=== PATIENT | female | born 1955 | race Caucasian/White ===

== ENCOUNTER 2019-09-03 05:56 | Day surgery (SDC) | payer OTHER, SELFPAY ==
[2019-09-03] VITALS (8 sets, daily range): BP systolic 88–162; BP diastolic 64–80; PULSE 58–67; RESP 14–16; TEMP 36.1–37.2; O2SAT 91–97; BMI 32.2
--- NOTE | 2019-09-03 07:27 | EKG12_ITS ---
Test Reason : PRE-OP Blood Pressure : / mmHG Vent. Rate : 062 BPM Atrial Rate : 062 BPM P-R Int : 164 ms QRS Dur : 078 ms QT Int : 432 ms P-R-T Axes : 067 002 034 degrees QTc Int : 438 ms Normal sinus rhythm Normal ECG No previous ECGs available Confirmed by BETITO STROUD ([id number]), research editor KATEY GARNER ([id number]) on 09/03/2019 1:16:28 PM Referred By: Mino Day Confirmed By:BETITO STROUD
--- NOTE | 2019-09-03 07:57 | DCINST_ITS ---
Discharge Diet: Light diet - advance as tolerated Discharge Activity: Return to Normal Activity Call your doctor if you observe: Fever of 101 or Higher Suture Line Care: Avoid Pulling/Pushing, Avoid Pinching/Bending Instructions: Ureteral Stents Allergies/Adverse Reactions: Allergies caffeine Allergy (Verified 09/03/19 07:47) chest ache and stomach ache Medications to take at Discharge Amour Thyroid 90 mg PO DAILY 09/02/19 Hydrocodone Bitart/Apap 5-325 [[place] 5MG-325MG] 1 tab PO Q6H PRN PRN 09/02/19 Primary Care Physician: Harmony Acosta MD [Primary Care Provider] - Test Results: Test results from this visit will be discussed in further detail at your follow- up appointment, if applicable. Please Follow Up With: Mino Day MD When: please call to make an appointment.
[2019-09-03] MEDS: Lactated Ringers 1,000 ML 100 ML IV (08:00)
[2019-09-03] MEDS: Lubricating Jelly 60 GM Tube 30 GM TOPICAL (08:10)
[2019-09-03] MEDS: Cefazolin 2 GM in 0.9% Normal Saline 100 ML IV (08:12)
[2019-09-03] MEDS: Lidocaine Jelly 2% 20 ML Syringe (URO-JET) 20 APPLIC (08:17)
--- NOTE | 2019-09-03 08:20 | OP.PCM_ITS ---
Report of Operation Date of Procedure: 09/03/19 Pre-Operative Diagnosis: Obstructing distal right ureteral calculi 8 mm in size Post-Operative Diagnosis: Same Surgery/Procedure Performed:: Cystoscopy, right retrograde pyelogram, interpretation fluoroscopic images, right stent placement Description of Surgical Findings:: 63-year-old female taken back to the operating room after smooth induction of MAC local anesthesia she was placed in dorsolithotomy position, the urethra and vaginal area were prepped and draped in usual sterile fashion, we used lidocaine jelly into the urethra and bladder, I then went into the bladder with a 21 [place] rigid cystourethroscope, inside the bladder she had a normal trigone normal bladder no tumors or stones seen within the bladder. I then cannulated the right ureteral orifice with a Glidewire and a Pollack catheter. We performed a retrograde pyelogram gram and we could see the stone in the distal right ureter. I then used a 0.038 Glidewire to advance past the stone without any difficulties. And then over the wire I advanced a stent, 6 x 26 cm stent. Once the stent was in good position we pulled the wire the stent: Kidney bladder good position drained the bladder infections anesthetic is reversed. She is going to undergo cardiac clearance and then will bring her back for ureteroscopy and laser of the stone. Type of Anesthesia:: Local MAC Drains: stent right side - Admit VTE Documentation VTE Present on Admission: No VTE Mechan Device Prophylaxis: SCD's
--- NOTE | 2019-09-03 08:46 | EKG12_ITS ---
Test Reason : Blood Pressure : / mmHG Vent. Rate : 059 BPM Atrial Rate : 059 BPM P-R Int : 164 ms QRS Dur : 084 ms QT Int : 446 ms P-R-T Axes : 059 006 027 degrees QTc Int : 441 ms Sinus bradycardia Otherwise normal ECG When compared with ECG of 03-SEP-2019 07:43, MANUAL COMPARISON REQUIRED, DATA IS UNCONFIRMED Confirmed by BETITO STROUD ([id number]), newspaper editor managing VIKKI GREWAL ([id number]) on 09/09/2019 1:33:35 PM Referred By: Mino Day Confirmed By:BETITO STROUD
--- NOTE | 2019-09-07 03:28 | HP_ITS ---
HPI HPI History of Present Illness Surgical H&P: Yes Details: Ms. Hurst is a very pleasant 63-year-old nondiabetic, lifelong non- smoking female referred to us by urology for preop evaluation and chest pain. She has no significant hypertension and unknown cholesterol. Patient apparently requires ureteroscopy laser and stent for kidney stone and complained of chest pressure to her urologist Dr. Day. An EKG was performed on 09/03/2019 which showed normal sinus rhythm, normal axis, normal intervals, no evidence of previous myocardial infarction. She underwent a surgical procedure at [facility] on 09/03/2019 including a cystoscopy, right retrograde pyelogram, and right stent placement. On further history, the patient developed 2 out of 10 midsternal chest pressure and felt her heart beating hard during her uteroscopic procedure. She had no associated nausea, vomiting or shortness of breath. Her pain did not appear to radiate. In addition she has another type of chest pain induced by caffeine use which she describes as different than the midsternal pain she felt during her procedure. She denies any exertional symptoms prior to or subsequent to her urological procedure. She is awaiting cardiac re-stratification to undergo lithotripsy. She has no family history of premature coronary disease. She herself has never had a cardiac catheterization or a diagnosis of heart disease. In our office today her blood pressure is 120/80, pulse 76 and regular. Physical exam demonstrates clear lungs bilaterally, regular rate and rhythm, normal S1/S2, no S3 or S4. No murmurs detected. No edema noted. EKG is as above. Lipids are pending. Intake Vital Signs 09/07/19 Height 5 ft 3 in 09/07/19 Weight: 184 lb 09/07/19 BMI 32.5 09/07/19 BP 120/80 09/07/19 Blood Pressure Location Lt brachial 09/07/19 Position Sitting 09/07/19 Respiration 20 H 09/07/19 Pulse 76 09/07/19 Pulse Source Auscultation Intake Visit Reasons: CLEAR. (EDIS) CHEST PRESSURE Custodian Athletic Equipment Required: No Is patient in pain?: No Allergies caffeine Allergy (Verified 09/03/19 07:47) chest ache and stomach ache Medications Amour Thyroid 90 mg PO DAILY 09/02/19 [History Confirmed 09/06/19] Hydrocodone Bitart/Apap 5-325 [[place] 5MG-325MG] 1 tab PO Q6H PRN PRN 09/02/19 [History Confirmed 09/06/19] Ciprofloxacin [Cipro] 500 mg PO BID #10 tab 09/03/19 [Rx Confirmed 09/06/19] Hydrocodone/Acetaminophen [[place] 5-325 Tablet] 1 ea PO Q4H PRN PRN 5 Days #14 tab 09/03/19 [Rx Confirmed 09/06/19] PFSH Medical History Pre-operative cardiovascular examination (Acute) Right ureteral stone (Acute) Hypothyroidism (Chronic) Surgical History H/O bladder repair surgery (Chronic 2014) Social History (Updated 09/07/19 @ 15:30 by Davonte Grande MD) Smoking Status: Never smoker ROS Const Const: Positive for other (Referred by Dr. Day: had chest pressure during ureteroscopy.); negative for fatigue, weakness, body ache, fever(s), headache(s), chills, frequent falls, night sweats, daytime sleepiness, difficulty sleeping, excessive sweating, weight gain, weight loss, increased appetite, poor appetite or anorexia Eyes Eyes: Negative for blind spots, loss of peripheral vision, transient loss of vision, blurry vision, change in vision, double vision, floaters, tunnel vision or other ENT ENT: Negative for headache(s), dizziness, hearing loss, tinnitus, Nosebleed/epistaxis, balance problems, post nasal drip, lip swelling, tongue swelling, bleeding gums, hoarseness, neck pain, dry mouth or other Cardio Chest Pain: Yes (States had chest pain through to back for years) Frequency: other (Notices when she has caffeine) Character: other (Like a cramp) Onset: other (After caffeine (Coffee, tea, or lg amt chocolate). Also if tired.) Location: mid sternal, other (Radiating through to back.) Duration: minutes Exacerbation: other (caffeine) Relieving: other (sitting up from lying, belching, or taking sip of water) Recurrence: other (Thinks day of ureteroscopy it was from her pain pills.) Palpitations: No Edema: None Muscle aches with walking: None Resp Respiratory: Negative for SOB with activity, SOB at rest, SOB orthopnea\SOB lying down, Cough, Coughing up blood/hemoptysis, chest congestion, pain on inspiration, snoring, stridor, wheezing, crackles, paroxysmal nocturnal dyspnea or other GI GI: Negative nausea, vomiting, heartburn, constipation, belching, bloating, cramping, vomiting blood/hematemesis, bright, red blood in stools, black,tarry stools, loose stools, Difficulty Swallowing or other : Negative for hematuria, frequent nighttime urination/ nocturia, erectile dysfunction or abnormal vaginal bleeding Musc Musc: Negative for muscle aches/ myalgia, muscle weakness, joint pain or balance problems Skin Skin: Negative redness, non-healing lesions, rash, unusual bruising, skin ulcer, wounds, jaundice or other Neuro Neuro: Negative for dizziness, lightheadedness, near syncope, syncope, orthostatic symptoms, frequent falls, headache(s), weakness, confusion, memory loss, restless legs, blurry vision, double vision, vertigo, seizures, lack of coordination or other Davis Hematologic/Lymphatic: Negative for easy bleeding, easy bruising, enlarged lymph nodes or other Endo Endo: Positive for other (On [place] Thyroid for about 30 years.); negative for fatigue, cold intolerance, heat intolerance, excessive sweating, flushing, increased thirst/drinking, increased hunger, hair loss or hair growth Psych Psych: Negative for anxiety, depression, thoughts of harming anyone, thoughts of harming yourself, visual hallucinations, panic attacks or audible hallucinations Allergy Allergy/Immunology: Negative for throat swelling, Negative for tongue swelling, Negative for hives, Negative for rash, Negative for lip swelling Cardiology Exam Const Appearance: cooperative, healthy appearing and no acute distress Nutritional Appearance: well nourished Orientation: alert, oriented x3 and oriented to person Head Head: normal to inspection, normocephalic and atraumatic Nose: external nose normal Face and Sinus: face symmetric Mouth: oral mucosae normal Eyes General: appearance normal, both eyes and all related structures Eyelids: eyelids normal Conjunctivae: conjunctivae normal Pupils: PERRL and normal by confrontation EOM: EOM intact bilaterally Neck Neck: normal visual inspection and full ROM Carotids: normal carotid upstroke Chest Chest inspection: normal inspection of the chest Auscultation: Bilateral: Clear to Auscultation Cardio Palpation: normal PMI Rate: regular rate Rhythm: regular rhythm Heart sounds: S1 normal and S2 normal GI GI: normal to inspection, no hepatosplenomegaly and bowel sounds present Neuro General: alert, awake, oriented x3, CN's II-XI intact bilaterally and moves all extremities Skin Skin: no rashes or lesions noted Extremities Pulses: Normal: Right Femoral Pulse, Left Femoral Pulse, Right Dorsalis Pedis Pulse, Left Dorsalis Pedis Pulse, Right Posterior Tibial Pulse, Left Posterior Tibial Pulse, Right Radial Pulse, Left Radial Pulse Lower Extremity Edema: None: Bilateral Psych Psychological: normal affect Assessment & Plan 1. Pre-operative cardiovascular examination Z01.810 Chest pressure during initial cystocopy 09/03/[address] Day Plan 1. Preoperative stratification: The patient had new onset substernal chest discomfort while she was undergoing a uroscopic procedure. She had no dynamic EKG changes that I can decipher. Her EKG appears to be normal. Her pain was dissimilar from her previous atypical caffeine induced chest pain. Given the patient's need for a repeat urological procedure and her new onset chest discomfort, I recommend that she undergo a 2D echo with Doppler to document her LV function as well as a treadmill echocardiogram to determine if she has any evidence of ischemia. If either 1 of these are grossly abnormal, the patient may require diagnostic coronary angiogram prior to her follow-up urological procedure. I would not recommend baby aspirin at this time as she requires additional urological procedure in the near future. If her stress test is negative, she will be deemed at low risk for noncardiac surgery, and may proceed with her lithotripsy. In addition we will obtain a fasting lipid profile to complete her cardiac risk profile. 2. Follow-up in 6 months. This note was generated using a voice recognition system and there may be incorrect words, spelling or punctuation that were not noted when reviewing the office note prior to saving. Orders Orders: Lipid Profile Today Liver Profile Today Echo Complete Today Stress Test Echo W/Contrast Today Plan Detail Other Orders Orders: Lipid Profile Today E03.9, R07.9 Liver Profile Today E03.9, R07.9 Echo Complete Today R07.9 Stress Test Echo W/Contrast Today E03.9, R07.9 Follow Up +6M (Grande) Coding Level of Care Code Off vis,new,level 4 Diagnoses Pre-operative cardiovascular examination Z01.810 Coding Level of Care Code Off vis,new,level 4 Diagnoses Pre-operative cardiovascular examination Z01.810 Supplemental Info Supplemental Information Diagnostics Electrocardiogram 09/03/19 09/07/19 1530 <Electronically signed by Davonte Grande MD> Date _ Davonte Grande MD
== END 2019-09-03 14:19 | disposition home or self-care (01) ==
LOC: SDC 06:00 → AC 06:01
PROVIDERS: Anesthesiology; PCP Internal Medicine; Referring Provider Urology; Visit Provider Urology
PROC: (CPT 52005; principal; 2019-09-03 07:20)
DX: N20.1 Calculus of ureter (principal); E03.9 Hypothyroidism, unspecified; Z79.899 Other long term (current) drug therapy
CPT/HCPCS: 00910; 52005; 52332; 36415; 76000; 84484; 93005; J7120; A4216; C2617; J2405

== ENCOUNTER → 2019-09-08 08:07 | Outpatient (CLI) | payer SELFPAY, OTHER ==
[2019-09-07 14:24] VITALS: BMI 32.5
--- NOTE | 2019-09-08 08:08 | STEWCON_ITS ---
Reason For Study: CHEST PAIN Stress Results Protocol: Tha Protocol WITH DEFINITY Maximum Predicted HR: 158 bpm Target HR: 134 bpm % Maximum Predicted HR: 94 % DurationHeart Rate Stage (mm:ss) (bpm) BP Comment BASELINE 66 128/824 CC DEFINITY FOR TEST STAGE 1 3:00 100 158/82 STAGE 2 3:00 118 172/80 STAGE 3 3:00 148 182/70 RECOVERY 94 130/80NO CHEST PAIN Stress Duration: 9:00 mm:ss Maximum Stress HR: 148 bpm Baseline Echocardiogram Findings The estimated ejection fraction is 65 %. Stress Echo Wall motion Data Resting WM Intermediate WM Stress WM EKG Data The baseline ECG displays normal sinus rhythm. The patient exercised according to the regular Tha protocol for a total duration of 9:00. The maximum heart rate attained was 150 beats per minute. This was 94% of maximum predicted heart rate. The patient exercised into stage 4 of the Tha protocol. During stress, there were no ST or T wave changes noted to suggest ischemia. No arrhythmias noted. No clinical angina was noted. Interpretation Summary The estimated ejection fraction is 65 %. Normal, adequate, treadmill echocardiogram. Negative for ischemia by EKG and echocardiographic criteria. No anginal symptoms noted. No arrhythmias noted. Appropriate blood pressure response to exercise. Average exercise capacity for age. Test terminated due to dyspnea and target heart rate achieved. Final LVEF is 75%. Decreased sensitivity due to poor echo windows requiring Definity agent. No complications. The study was technically difficult. Contrast injection was performed. Ordering Physician: Davonte Grande Referring Physician: Davonte Grande Performed By: Sena Toth, KEITH, RVT
--- NOTE | 2019-09-08 08:08 | ECHOD_ITS ---
Reason For Study: CHEST PAIN Procedure This was a 2D Doppler, Color Flow transthoracic echocardiogram. Exam performed in department. Left Ventricle Normal size and thickness. The estimated ejection fraction is 65 %. Stage 1 diastolic dysfunction. No regional wall motion abnormalities noted. Right Ventricle Normal size and thickness. Atria Normal left atrium. Normal right atrium. Normal atrial septum. Mitral Valve The mitral valve is structurally normal. No prolapse or stenosis seen. Trivial mitral valve insufficiency. Tricuspid Valve Normal tricuspid valve. Trivial tricuspid valve insufficiency. Right ventricular systolic pressure estimated to be 28 mmHg. Aortic Valve Trisinus/trileaflet aortic valve. Aortic sclerosis, no stenosis. There is no aortic stenosis. Pulmonic Valve Normal pulmonic valve. Great Vessels Normal aortic root. Normal arch. Normal inferior vena cava. Inferior vena cava collapse with sniff. Pericardium/Pleural No pericardial effusion. MMode/2D Measurements & Calculations LVIDd: 4.6 cm IVSd: 0.82 cm Ao root diam: 2.5 cm LVIDs: 2.7 cm LVPWd: 0.92 cm RVDd: 3.5 cm FS: 41.0 % LAV(MOD-bp): 49.6 ml LA A4 area: 16.7 cm2 LA dimension(2D): 3.8 cm LAV(MOD-bp) Indexed: 27.1 ml/m2 LAV(MOD-sp2): 46.7 ml LAV(MOD-sp4): 46.4 ml RA A4 area: 10.1 cm2 Time Measurements MV dec time: 0.25 sec Doppler Measurements & Calculations MV E max eran: 94.6 cm/sec Lat Peak E' Eran: 9.9 cm/sec Med Peak E' Eran: 8.3 cm/sec MV A max eran: 114.2 cm/sec E/E' lat: 9.6 E/E' med: 11.4 MV E/A: 0.83 Ao V2 max: 176.3 cm/sec LV V1 max: 94.7 cm/sec PA V2 max: 96.1 cm/sec Ao max P.4 mmHg LV V1 max P.6 mmHg Ao V2 mean: 132.1 cm/sec LV V1 mean P.2 mmHg Ao mean P.4 mmHg LV V1 mean: 71.2 cm/sec Ao V2 VTI: 38.4 cm LV V1 VTI: 24.1 cm TR max eran: 238.4 cm/sec TR max P.7 mmHg Interpretation Summary The estimated ejection fraction is 65 %. Stage 1 diastolic dysfunction. Trivial mitral valve insufficiency. Trivial tricuspid valve insufficiency. Right ventricular systolic pressure estimated to be 28 mmHg. There is no comparison study available. Ordering Physician: Davonte Grande Referring Physician: Harmony Acosta Performed By: Sena Toth RDCS, RVT
== END ==
PROVIDERS: PCP Internal Medicine; Referring Provider Internal Medicine Cardiovascular Disease; Visit Provider Internal Medicine Cardiovascular Disease
DX: Z01.810 Encounter for preprocedural cardiovascular examination (principal); R07.9 Chest pain, unspecified; E03.9 Hypothyroidism, unspecified
CPT/HCPCS: 93017; 93306; 93350; Q9957; A4216; C8928

== ENCOUNTER 2019-09-10 05:57 | Day surgery (SDC) | payer SELFPAY, OTHER ==
--- NOTE | 2019-09-07 03:28 | HP_ITS ---
HPI HPI History of Present Illness Surgical H&P: Yes Details: Ms. Hurst is a very pleasant 63-year-old nondiabetic, lifelong non- smoking female referred to us by urology for preop evaluation and chest pain. She has no significant hypertension and unknown cholesterol. Patient apparently requires ureteroscopy laser and stent for kidney stone and complained of chest pressure to her urologist Dr. Day. An EKG was performed on 09/03/2019 which showed normal sinus rhythm, normal axis, normal intervals, no evidence of previous myocardial infarction. She underwent a surgical procedure at [facility] on 09/03/2019 including a cystoscopy, right retrograde pyelogram, and right stent placement. On further history, the patient developed 2 out of 10 midsternal chest pressure and felt her heart beating hard during her uteroscopic procedure. She had no associated nausea, vomiting or shortness of breath. Her pain did not appear to radiate. In addition she has another type of chest pain induced by caffeine use which she describes as different than the midsternal pain she felt during her procedure. She denies any exertional symptoms prior to or subsequent to her urological procedure. She is awaiting cardiac re-stratification to undergo lithotripsy. She has no family history of premature coronary disease. She herself has never had a cardiac catheterization or a diagnosis of heart disease. In our office today her blood pressure is 120/80, pulse 76 and regular. Physical exam demonstrates clear lungs bilaterally, regular rate and rhythm, normal S1/S2, no S3 or S4. No murmurs detected. No edema noted. EKG is as above. Lipids are pending. Intake Vital Signs 09/07/19 Height 5 ft 3 in 09/07/19 Weight: 184 lb 09/07/19 BMI 32.5 09/07/19 BP 120/80 09/07/19 Blood Pressure Location Lt brachial 09/07/19 Position Sitting 09/07/19 Respiration 20 H 09/07/19 Pulse 76 09/07/19 Pulse Source Auscultation Intake Visit Reasons: CLEAR. (EDIS) CHEST PRESSURE Order Make Up Clerk Required: No Is patient in pain?: No Allergies caffeine Allergy (Verified 09/03/19 07:47) chest ache and stomach ache Medications Amour Thyroid 90 mg PO DAILY 09/02/19 [History Confirmed 09/06/19] Hydrocodone Bitart/Apap 5-325 [[place] 5MG-325MG] 1 tab PO Q6H PRN PRN 09/02/19 [History Confirmed 09/06/19] Ciprofloxacin [Cipro] 500 mg PO BID #10 tab 09/03/19 [Rx Confirmed 09/06/19] Hydrocodone/Acetaminophen [[place] 5-325 Tablet] 1 ea PO Q4H PRN PRN 5 Days #14 tab 09/03/19 [Rx Confirmed 09/06/19] PFSH Medical History Pre-operative cardiovascular examination (Acute) Right ureteral stone (Acute) Hypothyroidism (Chronic) Surgical History H/O bladder repair surgery (Chronic 2014) Social History (Updated 09/07/19 @ 15:30 by Davonte Grande MD) Smoking Status: Never smoker ROS Const Const: Positive for other (Referred by Dr. Day: had chest pressure during ureteroscopy.); negative for fatigue, weakness, body ache, fever(s), headache(s), chills, frequent falls, night sweats, daytime sleepiness, difficulty sleeping, excessive sweating, weight gain, weight loss, increased appetite, poor appetite or anorexia Eyes Eyes: Negative for blind spots, loss of peripheral vision, transient loss of vision, blurry vision, change in vision, double vision, floaters, tunnel vision or other ENT ENT: Negative for headache(s), dizziness, hearing loss, tinnitus, Nosebleed/epistaxis, balance problems, post nasal drip, lip swelling, tongue swelling, bleeding gums, hoarseness, neck pain, dry mouth or other Cardio Chest Pain: Yes (States had chest pain through to back for years) Frequency: other (Notices when she has caffeine) Character: other (Like a cramp) Onset: other (After caffeine (Coffee, tea, or lg amt chocolate). Also if tired.) Location: mid sternal, other (Radiating through to back.) Duration: minutes Exacerbation: other (caffeine) Relieving: other (sitting up from lying, belching, or taking sip of water) Recurrence: other (Thinks day of ureteroscopy it was from her pain pills.) Palpitations: No Edema: None Muscle aches with walking: None Resp Respiratory: Negative for SOB with activity, SOB at rest, SOB orthopnea\SOB lying down, Cough, Coughing up blood/hemoptysis, chest congestion, pain on inspiration, snoring, stridor, wheezing, crackles, paroxysmal nocturnal dyspnea or other GI GI: Negative nausea, vomiting, heartburn, constipation, belching, bloating, cramping, vomiting blood/hematemesis, bright, red blood in stools, black,tarry stools, loose stools, Difficulty Swallowing or other : Negative for hematuria, frequent nighttime urination/ nocturia, erectile dysfunction or abnormal vaginal bleeding Musc Musc: Negative for muscle aches/ myalgia, muscle weakness, joint pain or balance problems Skin Skin: Negative redness, non-healing lesions, rash, unusual bruising, skin ulcer, wounds, jaundice or other Neuro Neuro: Negative for dizziness, lightheadedness, near syncope, syncope, orthostatic symptoms, frequent falls, headache(s), weakness, confusion, memory loss, restless legs, blurry vision, double vision, vertigo, seizures, lack of coordination or other Davis Hematologic/Lymphatic: Negative for easy bleeding, easy bruising, enlarged lymph nodes or other Endo Endo: Positive for other (On [place] Thyroid for about 30 years.); negative for fatigue, cold intolerance, heat intolerance, excessive sweating, flushing, increased thirst/drinking, increased hunger, hair loss or hair growth Psych Psych: Negative for anxiety, depression, thoughts of harming anyone, thoughts of harming yourself, visual hallucinations, panic attacks or audible hallucinations Allergy Allergy/Immunology: Negative for throat swelling, Negative for tongue swelling, Negative for hives, Negative for rash, Negative for lip swelling Cardiology Exam Const Appearance: cooperative, healthy appearing and no acute distress Nutritional Appearance: well nourished Orientation: alert, oriented x3 and oriented to person Head Head: normal to inspection, normocephalic and atraumatic Nose: external nose normal Face and Sinus: face symmetric Mouth: oral mucosae normal Eyes General: appearance normal, both eyes and all related structures Eyelids: eyelids normal Conjunctivae: conjunctivae normal Pupils: PERRL and normal by confrontation EOM: EOM intact bilaterally Neck Neck: normal visual inspection and full ROM Carotids: normal carotid upstroke Chest Chest inspection: normal inspection of the chest Auscultation: Bilateral: Clear to Auscultation Cardio Palpation: normal PMI Rate: regular rate Rhythm: regular rhythm Heart sounds: S1 normal and S2 normal GI GI: normal to inspection, no hepatosplenomegaly and bowel sounds present Neuro General: alert, awake, oriented x3, CN's II-XI intact bilaterally and moves all extremities Skin Skin: no rashes or lesions noted Extremities Pulses: Normal: Right Femoral Pulse, Left Femoral Pulse, Right Dorsalis Pedis Pulse, Left Dorsalis Pedis Pulse, Right Posterior Tibial Pulse, Left Posterior Tibial Pulse, Right Radial Pulse, Left Radial Pulse Lower Extremity Edema: None: Bilateral Psych Psychological: normal affect Assessment & Plan 1. Pre-operative cardiovascular examination Z01.810 Chest pressure during initial cystocopy 09/03/[address] Day Plan 1. Preoperative stratification: The patient had new onset substernal chest discomfort while she was undergoing a uroscopic procedure. She had no dynamic EKG changes that I can decipher. Her EKG appears to be normal. Her pain was dissimilar from her previous atypical caffeine induced chest pain. Given the patient's need for a repeat urological procedure and her new onset chest discomfort, I recommend that she undergo a 2D echo with Doppler to document her LV function as well as a treadmill echocardiogram to determine if she has any evidence of ischemia. If either 1 of these are grossly abnormal, the patient may require diagnostic coronary angiogram prior to her follow-up urological procedure. I would not recommend baby aspirin at this time as she requires additional urological procedure in the near future. If her stress test is negative, she will be deemed at low risk for noncardiac surgery, and may proceed with her lithotripsy. In addition we will obtain a fasting lipid profile to complete her cardiac risk profile. 2. Follow-up in 6 months. This note was generated using a voice recognition system and there may be incorrect words, spelling or punctuation that were not noted when reviewing the office note prior to saving. Orders Orders: Lipid Profile Today Liver Profile Today Echo Complete Today Stress Test Echo W/Contrast Today Plan Detail Other Orders Orders: Lipid Profile Today E03.9, R07.9 Liver Profile Today E03.9, R07.9 Echo Complete Today R07.9 Stress Test Echo W/Contrast Today E03.9, R07.9 Follow Up +6M (Grande) Coding Level of Care Code Off vis,new,level 4 Diagnoses Pre-operative cardiovascular examination Z01.810 Coding Level of Care Code Off vis,new,level 4 Diagnoses Pre-operative cardiovascular examination Z01.810 Supplemental Info Supplemental Information Diagnostics Electrocardiogram 09/03/19 09/07/19 1530 <Electronically signed by Davonte Grande MD> Date _ Davonte Grande MD
[2019-09-07 14:24] VITALS: BMI 32.5
[2019-09-10 06:38] VITALS: BP 140/78; PULSE 69; RESP 18; TEMP 36.2; O2SAT 98; BMI 32.6
[2019-09-10] MEDS: Lactated Ringers 1,000 ML 100 ML IV (06:56)
[2019-09-10] MEDS: Cefazolin 2 GM in 0.9% Normal Saline 100 ML IV (07:21)
--- NOTE | 2019-09-10 07:29 | PCM.HP.STD ---
History of Present Illness Date of Admission: 09/10/19 Chief Complaint: Right ureteral calculi distal ureter The patient is a 63 year old female who presents the hospital for surgery. Past Medical History Past Medical History (Chronic Problems): Chronic Problems (Last Updated 09/07/19 @ 15:14 by Paige Ramon) Hypothyroidism (Chronic) Medical History: Medical History (Last Updated 09/07/19 @ 15:14 by Paige Ramon) Chest pain (Acute) R07.9 Pre-operative cardiovascular examination (Acute) Z01.810 Chest pressure during initial cystocopy 09/03/[address] Day Right ureteral stone (Acute) N20.1 8 mm in size Hypothyroidism (Chronic) E03.9 Allergies caffeine Allergy (Verified 09/10/19 06:31) chest ache and stomach ache Home Medications: Ambulatory Orders Medication Instructions Recorded Amour Thyroid 90 mg PO DAILY 09/02/19 Ciprofloxacin [Cipro] 500 mg PO BID #6 tab 09/10/19 Hydrocodone/Acetaminophen [[place] 1 each PO Q4H PRN PRN 5 Days #10 09/10/19 5-325 Tablet] tablet Surgical History: Surgical History (Last Reviewed 09/07/19 @ 14:24 by Paige Ramon) H/O bladder repair surgery Onset Date: [address] Gil Smoking Status: Never smoker Tobacco Use: Non-smoker VTE Information - Inpt Only VTE Present on Admission: No VTE Mechan Device Prophylaxis: SCD's - Physical Exam Vitals/I&O's: Vital Signs Temp Pulse Resp BP Pulse Ox 97.1 F L 69 18 140/78 H 98 09/10/19 06:38 09/10/19 06:38 09/10/19 06:38 09/10/19 06:38 09/10/19 06:38 Oxygen Delivery Method Room Air Weight: 83.6 kg Body Mass Index (BMI) 32.6 General: Alert, Oriented x3, Cooperative HEENT: Atraumatic, PERRLA, EOMI, Normocephalic Neck: Supple, No JVD, Negative Carotid Bruits Lungs: Clear to auscultation, Normal air movement Cardiovascular: Regular rate, No murmurs Abdomen: Bowel Sounds Present, Soft, Non Tender Extremities: No edema, Capillary Refill Less than 3 Seconds Skin: No rashes, No breakdown Musculoskeletal: No Tenderness to Palpation of Joints or Extremities Neurological: Cranial nerves II-XII grossly intact Psych/Mental Status: Normal Affect, Appropriate Current Medications Cefazolin Sodium 2 gm/ Sodium (Chloride) 110 mls @ 150 mls/hr IV PREOP ONE Stop: 09/10/19 07:43 Lactated Ringer's () 1,000 mls @ 100 mls/hr IV .Q10H MARY Last Admin: 09/10/19 06:56 Dose: 100 mls/hr Documented by: Assessment/Plan All Active Problems (Last Updated 09/07/19 @ 15:14 by Paige Ramon) Chest pain (Acute) Pre-operative cardiovascular examination (Acute) Right ureteral stone (Acute) Plan to proceed with right ureteroscopy laser of stone and stent.
[2019-09-10] MEDS: Lubricating Jelly 60 GM Tube 30 GM TOPICAL (07:47)
--- NOTE | 2019-09-10 07:50 | DCINST_ITS ---
Discharge Diet: Light diet - advance as tolerated Call your doctor if you observe: Fever of 101 or Higher Allergies/Adverse Reactions: Allergies caffeine Allergy (Verified 09/10/19 06:31) chest ache and stomach ache Medications to take at Discharge Amour Thyroid 90 mg PO DAILY 09/02/19 Ciprofloxacin [Cipro] 500 mg PO BID #6 tab 09/10/19 Hydrocodone/Acetaminophen [[place] 5-325 Tablet] 1 each PO Q4H PRN PRN 5 Days #10 tablet 09/10/19 The following prescriptions were given: Ciprofloxacin [Cipro] 500 mg PO BID #6 tab Transmission Status: Pending to [facility] Hydrocodone/Acetaminophen [[place] 5-325 Tablet] 1 each PO Q4H PRN PRN 5 Days #10 tablet PRN Reason: Pain Score 1-10/10 Transmission Status: Sent to [facility] Primary Care Physician: Harmony Acosta MD [Primary Care Provider] - Test Results: Test results from this visit will be discussed in further detail at your follow- up appointment, if applicable. Please Follow Up With: Mino Day MD When: please call to make an appointment.
--- NOTE | 2019-09-10 07:51 | OP.PCM_ITS ---
Report of Operation Date of Procedure: 09/10/19 Pre-Operative Diagnosis: Right ureteral calculi causing obstruction Post-Operative Diagnosis: The same Surgery/Procedure Performed:: Cystoscopy, right retrograde pyelogram, interpretation fluoroscopic images, right ureteroscopy laser lithotripsy of stone and right stent placement. Description of Surgical Findings:: 63-year-old female who has an obstructing stone in the distal right ureter prese nts today for treatment of the stone with laser lithotripsy. She was taken back to the operating room after smooth induction of general anesthesia she was placed on dorsolithotomy position. The urethra vaginal area prepped and draped in usual sterile fashion. Went into the bladder with a 21 [place] rigid cystourethroscope. Grabbed existing stent pulled out the meatus. Advance a Glidewire through the stent all the way up to the kidney. Left the wire attached to the drapes as a safety wire. Next the wire I went in with an 7.4 [place] offset Olympus ureteroscope was able to get into the ureter quite easily worked my way up the ureter until I encountered the stone. I then used a 270 ?m laser fiber to laser the stone little tiny pieces energy settings were 0.6 J and 6 Hz and 20 Hz. The stone was pulverized a little tiny pieces that should pass on their own and then worked my way down the ureter many the pieces were then passed. Then over the wire we had performed a retrograde pyelogram. See contrast going of the kidney. And then over the wire I advanced a stent 6 [place] by 26 cm stent once a stent was good position I pulled the string and the stent: The kidney bladder good position. We drained the bladder we trim the string on the stent to avoid accidental removal of the stent sooner than indicated. Patient's anesthetic was reversed and she was taken back to PACU in good condition see her next week for stent removal. Type of Anesthesia:: General Drains: stent right - Admit VTE Documentation VTE Present on Admission: No VTE Mechan Device Prophylaxis: SCD's
[2019-09-10 08:00] VITALS: BP 114/73; BP 140/78; PULSE 73; RESP 12; TEMP 36.4; O2SAT 92
[2019-09-10 08:15] VITALS: BP 123/75; BP 140/78; PULSE 71; RESP 16; O2SAT 93
[2019-09-10] MEDS: Ketorolac 15 MG/ML Vial IV (08:16)
[2019-09-10 08:30] VITALS: BP 117/73; BP 140/78; PULSE 73; RESP 16; O2SAT 94
[2019-09-10 08:38] VITALS: BP 130/74; BP 140/78; PULSE 68; RESP 16; TEMP 36.3; O2SAT 95
[2019-09-10 10:12] VITALS: BP 138/84; BP 140/78; PULSE 72; RESP 16; TEMP 36.4; O2SAT 98
== END 2019-09-10 10:28 | disposition home or self-care (01) ==
LOC: SDC 06:01 → AC 06:01
PROVIDERS: PCP Internal Medicine; Visit Provider Urology
PROC: 0TJ98ZZ Inspection of Ureter, Via Natural or Artificial Opening Endoscopic (ICD-10-PCS; CPT 52352; principal; 2019-09-10 07:20)
DX: N20.1 Calculus of ureter (principal); E03.9 Hypothyroidism, unspecified; Z79.899 Other long term (current) drug therapy
CPT/HCPCS: 00873; 52356; 76000; J7120; C1769; C2617; J2405